=== PATIENT | female | born 1995 | race Caucasian/White ===

== ENCOUNTER 2024-05-28 14:34 | Emergency (ER) | payer SELFPAY ==
[2024-05-28 14:42] VITALS: BP 134/80; PULSE 100; RESP 16; TEMP 36.6; O2SAT 98; BMI 36.6
--- NOTE | 2024-05-28 14:46 | DI.US.S_ITS ---
PROCEDURE: US OB <= 14 WEEKS FETUS INDICATIONS: SPOTTING OUTSIDE/PRIOR DATING DATA: Last menstrual period (LMP): 03/17/2024. LMP-based estimated date of delivery (SAMSON): 12/22/2024. First dating scan (date and location): 05/28/2024. Estimated date of delivery (SAMSON) from first dating scan: 12/19/2024. TECHNIQUE: Real-time scanning was performed of the fetus and maternal pelvic organs, with image documentation. COMPARISON: None. FINDINGS: Single intrauterine present. Embryo: Present, measuring 3.8 centimeters, corresponding to 10 weeks 5 days Heart rate: 157 beats per minute Subchorionic hemorrhage present, measuring 2.1 x 1.7 x 7.6 centimeter. Maternal organs: Ovaries are unremarkable. IMPRESSION: Single living intrauterine at 10 weeks 5 days, SAMSON 12/19/2024 based on today's exam. Large subchorionic hemorrhage. We strive to produce accurate, complete, and clear reports of imaging services. To assist us in improving patient care, this report was composed using standard report templates and voice recognition software. Therefore, it may contain abnormal punctuation, insertions and/or omissions. Occasional wrong-word or sound-alike substitutions may occur. Though we review the report and make efforts to correct it, we do recommend that the report be read carefully in proper context to recognize any text inaccuracies. Dictated by: Rafael Maguire M.D. on 05/28/2024 at 15:36 Approved by: Rafael Maguire M.D. on 05/28/2024 at 15:37
[2024-05-28 15:40] LABS: Add Manual Diff / Slide Review NO; Basophils Absolute Auto 0 /uL (0-100); Basophils Percent Auto 0.2 % (0-2); Eosinophils Absolute Auto 0 /uL (0-450); Eosinophils Percent Auto 0.6 % (2-4); Hematocrit 36.2 % (36-46); Hemoglobin 12.3 g/dL (12.0-16.0); Lymphocytes Absolute Auto 900 /uL (1100-4500); Lymphocytes Percent Auto 12.5 % (25-40); Mean Corpuscular HGB Conc 33.8 % (30-36); Mean Corpuscular Hemoglobin 28.6 PG (26-34); Mean Corpuscular Volume 84.7 fL (80-100); Monocytes Absolute Auto 400 /uL (0-900); Monocytes Percent Auto 5.6 % (3-14); Neutrophils Absolute Auto 5800 /uL (1500-7000); Neutrophils Percent Auto 81.1 % (50-75); Platelet Count 215 X10^3/uL (150-400); Red Blood Cell Count 4.28 X10^6/uL (4.0-5.2); Red Cell Distribution Width 14.5 % (11.6-14.8); White Blood Cell Count 7.2 X10^3/uL (4.5-11.0)
[2024-05-28 15:44] LABS: Alanine Aminotransferase 16 IU/L (<35); Albumin 3.7 g/dL (3.5-5.0); Albumin Globulin Ratio 1.5 (1.0-2.8); Alkaline Phosphatase 60 U/L (38-126); Aspartate Aminotransferase 22 IU/L (14-36); BUN Creatinine Ratio 11.3 (6-22); Bilirubin Total 0.4 mg/dL (0.2-1.3); Blood Urea Nitrogen 6 mg/dL (7-17); Calcium 8.8 mg/dL (8.4-10.2); Carbon Dioxide 21 mmol/L (22-32); Chloride 107 mmol/L (98-107); Estimated Glomerular Filt Rate > 60 mL/min (>60); Globulin 2.4 g/dL (1.7-4.1); Glucose 114 mg/dL (70-100); HEMOLYSIS < 15 (0-50); Potassium 3.7 mmol/L (3.4-5.1); Sodium 135 mmol/L (137-145); Total Protein 6.1 g/dL (6.3-8.2)
--- NOTE | 2024-05-28 16:01 | ED_ITS ---
HPI - General Chief complaint: Vaginal Bleeding Stated complaint: 10 weeks preg, little spotting Time Seen by Provider: 05/28/24 16:01 Source: patient, RN notes reviewed and old records reviewed Mode of arrival: Ambulatory Limitations: no limitations History of Present Illness HPI Narrative: 28-year-old female who presents with complaint of spotting when she wipes after urinating. Patient has had a little bit of lower pelvic cramping. States she is approximately 10 weeks by dates. Has not established care. Does note she would RhoGAM with her prior . Patient states no trauma, she has not had any fevers. She describes her cramping is mild. No back or flank pain. No nausea or vomiting. No chest pain or shortness of breath. No lightheadedness or passing out. Has not had any je hematuria or je vaginal bleeding. She denies any dysuria urgency or frequency. No issues with bowel movements. Patient states no daily medications. No known drug allergies. She has not currently established with care. No tobacco, no regular alcohol, no recreational drugs. She is accompanied by her family. She does not have a primary care physician. Related Data Allergies Allergy/AdvReac Type Severity Reaction Status Date / Time No Known Drug Allergies Allergy Verified 05/28/24 14:42 Review of Systems Review of Systems ROS Unobtainable: All systems reviewed & are unremarkable except as noted in HPI and below Exam Narrative Exam Narrative: GENERAL: Alert and oriented x three, mild distress. HEENT: Head normocephalic, atraumatic, EOMI, pupils reactive, face symmetric, moist mucous membranes NECK: Supple, full range of motion CARDIOVASCULAR: Regular rate and rhythm without murmurs, rubs or gallops. RESPIRATORY: Breath sounds equal bilaterally, no wheezes rales or rhonchi. ABDOMEN: Soft, nontender. Normoactive bowel sounds all 4 quadrants. No guarding or rebound, rigidity, no mass : No CVA tenderness EXTREMITIES: Normal range of motion, no clubbing or edema. Neurovascularly intact NEUROLOGICAL: Cranial nerves II through XII grossly intact. Moving all extremities SKIN: Warm, dry, no petechiae, no rashes or lesions. Initial Vital Signs Initial Vital Signs: Vital Signs Temperature 97.9 F 05/28/24 14:42 Pulse Rate 100 H 05/28/24 14:42 Respiratory Rate 16 05/28/24 14:42 Blood Pressure 134/80 05/28/24 14:42 Pulse Oximetry 98 05/28/24 14:42 Oxygen Delivery Method Room Air 05/28/24 14:42 Course Orders Ordered: ED Orders 05/28/24 14:46 US OB <= 14 weeks fetus Stat 05/28/24 15:12 Complete Blood Count AUTO DIFF Stat Comprehensive Metabolic Panel Stat HCG Quantitative /Beta subunit Stat Type and Screen Stat Discontinued Medications Rho Immune Globulin (Rho(D) Immune Globulin 1,500 Unit Syringe) 1,500 unit IM NOW ONE Stop: 05/28/24 16:17 Last Admin: 05/28/24 16:28 Dose: 1,500 unit Documented By: [facility] Vital Signs Vital signs: Vital Signs - 8 hr 05/28/24 14:42 05/28/24 16:40 Temperature 97.9 F Pulse Rate 100 H 86 Respiratory Rate 16 16 Blood Pressure 134/80 124/86 Pulse Oximetry 98 98 Oxygen Delivery Method Room Air Room Air MDM - OB/Uterine Contractions Lab Data 05/28/24 15:12 05/28/24 15:12 Labs: Lab Results 05/28/24 Range/Units 15:12 WBC 7.2 (4.5-11.0) X10^3/uL RBC 4.28 (4.0-5.2) X10^6/uL Hgb 12.3 (12.0-16.0) g/dL Hct 36.2 (36-46) % MCV 84.7 (80-100) fL MCH 28.6 (26-34) PG MCHC 33.8 (30-36) % RDW 14.5 (11.6-14.8) % Plt Count 215 (150-400) X10^3/uL Neut % (Auto) 81.1 H (50-75) % Lymph % (Auto) 12.5 L (25-40) % [place] % (Auto) 5.6 (3-14) % Eos % (Auto) 0.6 L (2-4) % Baso % (Auto) 0.2 (0-2) % Neut # (Auto) 5800 (2531-4447) /uL Lymph # (Auto) 900 L (9560-4083) /uL [place] # (Auto) 400 (0-900) /uL Eos # (Auto) 0 (0-450) /uL Baso # (Auto) 0 (0-100) /uL Sodium 135 L (137-145) mmol/L Potassium 3.7 (3.4-5.1) mmol/L Chloride 107 (98-107) mmol/L Carbon Dioxide 21 L (22-32) mmol/L BUN 6 L (7-17) mg/dL Creatinine 0.53 (0.52-1.04) mg/dL Estimated GFR > 60 (>60) mL/min BUN/Creatinine Ratio 11.3 (6-22) Glucose 114 H (70-100) mg/dL Calcium 8.8 (8.4-10.2) mg/dL Total Bilirubin 0.4 (0.2-1.3) mg/dL AST 22 (14-36) IU/L ALT 16 (<35) IU/L Alkaline Phosphatase 60 (38-126) U/L Total Protein 6.1 L (6.3-8.2) g/dL Albumin 3.7 (3.5-5.0) g/dL Globulin 2.4 (1.7-4.1) g/dL Albumin/Globulin Ratio 1.5 (1.0-2.8) HCG, Quant 81053 mIU/mL Blood Type A Negative Antibody Screen Negative Urine Dip Bedside Urine Glucose Negative Bedside Urine Bilirubin - Negative Bedside Urine Ketone - Negative Urine Specific [place] 1.010 Bedside Urine Occult Blood - Negative Bedside Urine pH 6.0 Bedside Urine Protein - Negative Bedside Urine Urobilinogen - Negative Bedside Urine Nitrite - Negative Bedside Urine Leukocytes - Negative Esterase MDM Narrative Medical decision making narrative: 8-year-old female G Who presents with complaint of spotting, patient is approximately 10 weeks, she has received RhoGAM in the past. White count of 7.2 hemoglobin of 12.3 platelets of 215. Sodium 135 potassium 3.7 chloride of 107 CO2 of 21 BUN 6 creatinine 0.53 glucose of 114 calcium 8.8, LFTs are negative total protein 6.1, hCG is Rh is negative. Ultrasound shows single living intrauterine at 10 weeks 5 days estimated date of delivery 12/19/2024 based on today's exam large subchorionic hemorrhage measuring 2.1 x 1.7 x 7.6 cm. Heart rates 157 beats per minute. Spoke with patient, she has had some mild spotting but does have a large subchorionic hemorrhage so we will give RhoGAM. Patient's it is Rh negative. Spoke with Dr. Keyes who can see the patient next TuesdayJune 05 to establish care. Plan to continue with pelvic rest. Discussed return precautions with patient. Discharge Plan Departure Patient Disposition: Home Clinical Impression: Subchorionic hemorrhage, Vaginal bleeding in Instructions: DI for Vaginal Bleeding During Activity Restrictions/Additional Instructions: I spoke with Dr. Keyes today, she is happy to see on June the to set up care. You can call the office if you are having worsening bleeding over the next week to see if they can see you sooner. You can take Tylenol for any pain up to a 1000 mg every 6 hours. Pelvic rest is recommended. Avoid any heavy lifting, sexual activity, ect. Do not use tampons you can use pads or liners. Please return for new or worsening abdominal back or flank pain, going through more than a pad an hour, lightheadedness, passing out, chest pain or shortness of breath, persistent vomiting or other new or concerning changes. Referrals: Joelle Keyes MD [Physician] - Stand Alone Forms: Patient Portal/API
[2024-05-28 16:26] LABS: HCG Quantitative /Beta subunit 74606 mIU/mL
[2024-05-28] MEDS: RHO(D) IMMUNE GLOBULIN 1,500 UNIT SYRINGE 1500 UNIT IM (16:28)
[2024-05-28 16:40] VITALS: BP 124/86; PULSE 86; RESP 16; O2SAT 98
== END 2024-05-28 16:40 | disposition home or self-care (01) ==
PROVIDERS: Emergency Provider Emergency Medicine
DX: O46.8X1 Other antepartum hemorrhage, first trimester (principal); Z3A.10 10 weeks gestation of pregnancy
CPT/HCPCS: 36415; 76801; 80053; 81003; 84702; 85025; 86850; 86900; 86901; 96372; 99283; 99284; J2790

== ENCOUNTER → 2024-07-03 14:55 | Outpatient (CLI) | payer OTHER, MEDICAID, SELFPAY ==
[2024-07-03 20:48] LABS: Urine N gonorrhoeae NOT DETECTED
[2024-07-03 20:50] LABS: Urine Chlamydia NOT DETECTED
== END ==
PROVIDERS: Visit Provider Student in an Organized Health Care Education/Training Program
DX: Z34.02 Encounter for supervision of normal first pregnancy, second trimester (principal); Z3A.15 15 weeks gestation of pregnancy
CPT/HCPCS: 87491; 87591

== ENCOUNTER → 2024-07-03 15:27 | Outpatient (CLI) | payer OTHER, MEDICAID, SELFPAY ==
[2024-07-03 16:40] LABS: Add Manual Diff / Slide Review NO; Basophils Absolute Auto 0 /uL (0-100); Basophils Percent Auto 0.1 % (0-2); Eosinophils Absolute Auto 0 /uL (0-450); Eosinophils Percent Auto 0.4 % (2-4); Hematocrit 36.5 % (36-46); Hemoglobin 12.3 g/dL (12.0-16.0); Lymphocytes Absolute Auto 900 /uL (1100-4500); Lymphocytes Percent Auto 11.9 % (25-40); Mean Corpuscular HGB Conc 33.6 % (30-36); Mean Corpuscular Hemoglobin 28.7 PG (26-34); Mean Corpuscular Volume 85.4 fL (80-100); Monocytes Absolute Auto 500 /uL (0-900); Monocytes Percent Auto 6.1 % (3-14); Neutrophils Absolute Auto 6200 /uL (1500-7000); Neutrophils Percent Auto 81.5 % (50-75); Platelet Count 216 X10^3/uL (150-400); Red Blood Cell Count 4.27 X10^6/uL (4.0-5.2); Red Cell Distribution Width 14.9 % (11.6-14.8); White Blood Cell Count 7.7 X10^3/uL (4.5-11.0)
[2024-07-03 16:49] LABS: Hemoglobin A1C% w Est Avg Glu 4.9 % (4.0-6.0)
[2024-07-04 07:37] LABS: RPR Screen Non Reactive (Non Reactive)
[2024-07-04 08:11] LABS: Varicella IgG Antibody Non Reactive (Non Reactive)
== END ==
PROVIDERS: Referring Provider Student in an Organized Health Care Education/Training Program; Visit Provider Student in an Organized Health Care Education/Training Program
DX: O99.210 Obesity complicating pregnancy, unspecified trimester
CPT/HCPCS: 36415; 80055; 83036; 86787; 86803; 86850; 86870; 86900; 86901; 87389; 87491; 87591

== ENCOUNTER → 2024-08-03 14:51 | Outpatient (CLI) | payer BC, OTHER, SELFPAY ==
--- NOTE | 2024-08-03 14:52 | DI.US.S_ITS ---
PROCEDURE: US OB >= 14 WEEKS FETUS INDICATIONS: anatomy scan OUTSIDE/PRIOR DATING DATA: Last menstrual period (LMP): 03/17/24 LMP-based estimated date of delivery (SAMSON): 12/22/24. First dating scan (date and location): 05/28/24. Estimated date of delivery (SAMSON) from first dating scan: 12/19/24. The calculations are made using the above SAMSON of 12/19/24. TECHNIQUE: Real-time scanning was performed of the fetus, with image documentation and biometric measurements. Endovaginal scanning: Not needed COMPARISON: None. FINDINGS: General: A single living intrauterine gestation is present. Presentation: Breech. Placenta: Placental position is anterior , without previa. Amniotic fluid index: 13.5 cm, normal range is 5-24 cm. Single deepest vertical pocket is 4.4 cm. heart rate: 140 beats per minute. Maternal cervical canal: 4.9 cm long. Normal lower limit is 2.5 cm. biometrics: Biparietal diameter: 4.7 cm, 20 weeks 0 days Head circumference: 18.1 cm, 20 weeks 3 days Abdominal circumference: 15.4 cm, 20 weeks 4 days Femur length: 3.3 cm, 20 weeks 3 days Clinically estimated gestational age: 19 weeks 6 days Composite gestational age from present scan: 20 weeks 3 days Estimated weight and percentile: 357 g, 80 of percentile Anatomic survey: Neuro: Ventricles are non-dilated at less than 10 mm. Cisterna magna is normal at 3-11 mm. Cerebellum is normal in size and morphology. Nuchal skin fold: Normal at less than 6 mm between 14-21 weeks gestational age. Face: Nose and lips, facial profile are normal. Spine: No evidence for spina bifida. Heart: 4-chambered heart is present, with normal ventricular outflow tracts. The right ventricular outflow tract was somewhat poorly seen due to positioning. Diaphragm: Diaphragm is intact. Stomach: Left-sided stomach is present. Kidneys: No hydronephrosis. Normal is less than 5 mm in 2nd trimester, less than 7 mm in 3rd trimester. Cord: 3-vessel cord has orthotopic insertion. Bladder: Normal in size. Extremities: All 4 extremities identified. IMPRESSION: Appropriate interval growth, no anomaly seen. The delivery date is projected to be centered on 12/19/24 +/-5 days We strive to produce accurate, complete, and clear reports of imaging services. To assist us in improving patient care, this report was composed using standard report templates and voice recognition software. Therefore, it may contain abnormal punctuation, insertions and/or omissions. Occasional wrong-word or sound-alike substitutions may occur. Though we review the report and make efforts to correct it, we do recommend that the report be read carefully in proper context to recognize any text inaccuracies. Dictated by: Evangelist Blanco M.D. on 08/03/2024 at 16:44 Approved by: Evangelist Blanco M.D. on 08/03/2024 at 16:47
== END ==
PROVIDERS: Referring Provider Student in an Organized Health Care Education/Training Program; Visit Provider Student in an Organized Health Care Education/Training Program
DX: Z34.02 Encounter for supervision of normal first pregnancy, second trimester (principal); Z3A.20 20 weeks gestation of pregnancy
CPT/HCPCS: 76811

== ENCOUNTER → 2024-09-21 08:50 | Outpatient (CLI) | payer OTHER, SELFPAY ==
[2024-09-21 09:25] LABS: Hematocrit 36.8 % (36-46); Hemoglobin 12.4 g/dL (12.0-16.0)
[2024-09-21 11:27] LABS: GTT (PREG) 1 Hour PP 50gm Dose 93 mg/dL (76-139)
== END ==
PROVIDERS: Referring Provider Student in an Organized Health Care Education/Training Program; Visit Provider Student in an Organized Health Care Education/Training Program
DX: O99.210 Obesity complicating pregnancy, unspecified trimester (principal); Z13.0 Encounter for screening for diseases of the blood and blood-forming organs and certain disorders involving the immune mechanism; Z67.91 Unspecified blood type, Rh negative
CPT/HCPCS: 36415; 82950; 85014; 85018; 86850

== ENCOUNTER → 2024-11-15 15:50 | Outpatient (CLI) | payer OTHER, SELFPAY ==
--- NOTE | 2024-11-15 15:51 | DI.US.S_ITS ---
PROCEDURE: US OB LIMITED INDICATIONS: OBESITY - GROWTH OUTSIDE/PRIOR DATING DATA: Last menstrual period (LMP): 03/17/2024. LMP-based estimated date of delivery (SAMSON): 12/22/2024. First dating scan (date and location): 05/28/2024. Estimated date of delivery (SAMSON) from first dating scan: 12/19/2024. The calculations are made using the clinical SAMSON of 12/22/2024. TECHNIQUE: Real-time scanning was performed of the fetus, with image documentation and biometry. Endovaginal scanning: Not performed COMPARISON: [facility], OB >= 14 WEEKS FETUS, 08/03/2024, 15:00. FINDINGS: A single living intrauterine gestation is present. Presentation: Vertex. Placenta: Placental position is anterior, without previa. Amniotic fluid index: 25.3 cm, normal range is 5-24 cm. Single deepest vertical pocket is 10.3 cm. heart rate: 143 beats per minute. Maternal cervical canal: 6.6 cm long. Normal lower limit is 2.5 cm. Biometric measurements: BPD: 9.2 cm, 37 weeks 1 day. 97th percentile HC: 34.0 cm, 39 weeks 1 day. 98th percentile AC: 32.4 cm, 36 weeks 2 days. 92nd percentile FL: 6.7 cm, 34 weeks 3 days. 34th percentile Estimated weight 2881 g, 86 percentile. Clinically estimated gestational age: 34 weeks 5 days Estimated gestational age from today's scan: 36 weeks 5 days. IMPRESSION: 1. [place] living intrauterine at 36 weeks 5 days based on today's ultrasound. Vertex position. Estimated weight is in the 86 percentile. 2. Normal placenta. Polyhydramnios. STEPHANIE 25.3. Dictated by: Luther Shirley M.D. on 11/15/2024 at 21:57 Approved by: Luther Shirley M.D. on 11/15/2024 at 22:04
== END ==
PROVIDERS: Referring Provider Student in an Organized Health Care Education/Training Program; Visit Provider Student in an Organized Health Care Education/Training Program
DX: O99.213 Obesity complicating pregnancy, third trimester (principal); O40.3XX0 Polyhydramnios, third trimester, not applicable or unspecified; Z3A.36 36 weeks gestation of pregnancy
CPT/HCPCS: 76815

== ENCOUNTER → 2024-12-03 14:53 | Outpatient (CLI) | payer OTHER, SELFPAY ==
[2024-12-04 11:21] LABS: Strep Grp B PCR NEG for Grp B Strep
== END ==
PROVIDERS: Visit Provider Student in an Organized Health Care Education/Training Program
DX: Z36.85 Encounter for antenatal screening for Streptococcus B (principal)
CPT/HCPCS: 87653

== ENCOUNTER 2024-12-12 03:45 | Inpatient (IN) | payer OTHER, SELFPAY ==
[2024-12-12 05:57] LABS: Add Manual Diff / Slide Review NO; Basophils Absolute Auto 0 /uL (0-100); Basophils Percent Auto 0.3 % (0-2); Eosinophils Absolute Auto 0 /uL (0-450); Eosinophils Percent Auto 0.4 % (2-4); Lymphocytes Absolute Auto 1200 /uL (1100-4500); Lymphocytes Percent Auto 11.7 % (25-40); Mean Corpuscular HGB Conc 34.3 % (30-36); Mean Corpuscular Hemoglobin 30.9 PG (26-34); Mean Corpuscular Volume 90.1 fL (80-100); Monocytes Absolute Auto 600 /uL (0-900); Monocytes Percent Auto 6.3 % (3-14); Neutrophils Absolute Auto 8000 /uL (1500-7000); Neutrophils Percent Auto 81.3 % (50-75); Platelet Count 191 X10^3/uL (150-400); Red Blood Cell Count 4.21 X10^6/uL (4.0-5.2); Red Cell Distribution Width 14.9 % (11.6-14.8); White Blood Cell Count 9.8 X10^3/uL (4.5-11.0)
--- NOTE | 2024-12-12 06:43 | P.HPOB_ITS ---
OB HPI Date/Time Date of admission: 12/12/24 Date Patient Seen: 12/12/24 Time Patient Seen: 06:43 History of Present Condition Chief complaint: SROM SAMSON Calculator 2 Estimated Delivery Date Method Current WG Current Estimate 12/22/24 LMP (Certain) 38w 4d Other Estimates 12/19/24 Ultrasound #1 39w 0d : 2 Para: 1 Narrative: 29yo at 38+4wks presented with rupture of membranes at home at 0300. She notes some minor cramping, otherwise denies vaginal bleeding or decreased movement. care: good care Dating criteria OB: LMP confirmed by 1st trimester US Ultrasounds: normal mid trimester US Narrative: Ultrasound Ultrasound Details:: Dating US in DI 05/28/24: shin IUP with CRL measuring 10+5wks, + FCA, subchorionic hemorrhage Anatomy US 08/03/24: normal anatomy, anterior placenta, EFW 80%ile Growth US 11/15/24: EFW 86%ile, mild poly (STEPHANIE 25.3), vtx presentation Expected Delivery Route/Plan Specific Issues/Plans Mild polyhydramnios at 34wks (STEPHANIE 25.3)--> repeat fluid at 36wks (SDP 6.8); SDP 8.8cm at 38wks Obesity (pre- BMI 36)--> [?x ] Hgb A1C- 4.9; ?[x ] growth sono 32-34wks- EFW 86%ile Rh negative--> received rhogam 1st trimester for VB; [ x] rhogam 28wks Declined aneuploidy/carrier screening ObiBonnie tillman (will be getting in July) Assigned to Chay Preadmission Labs Last OB Lab Results: 2 Blood Type A Negative 12/12/24 05:40 Antibody Screen Positive 12/12/24 05:40 Hct 38.0 % (36-46) 12/12/24 05:40 Hgb 13.0 g/dL (12.0-16.0) 12/12/24 05:40 Hep Bs Antigen Negative s/c (NEGATIVE) 07/03/24 15:53 Hepatitis C Antibody Negative s/c (NEGATIVE) 07/03/24 15:53 Rubella Antibody 34.0 IU/mL (>15) 07/03/24 15:53 VZV IgG Antibody Non reactive (Non Reactive) 07/03/24 15:53 Glucose 1 Hr 50 gm 93 mg/dL (76-139) 09/21/24 10:45 Hemoglobin A1c 4.9 % (4.0-6.0) 07/03/24 15:53 Group B Strep (PCR) Neg for grp b strep 12/03/24 14:53 Glucose Tolerance Testin hr (negative) -: Chlamydia screen: negative, Gonorrhea screen: negative and Urine: negative -: PAP smear: Normal External Labs -: Urine: negative Prior (ies) Past Pregnancies Del. Date GA/Weeks Labor Lgth Wt Sex Route Outcome Anesthesia Place Delv Breastfeed Preg Comp Name 10/28/22 40 20 8 lb 12 oz Male vaginal live - full te rm epidural [place] tried x1 wk other Bal Delivery Date: 10/28/22 Last Updated by: Adriana Hollingsworth, RN Water broken for 20 hours, no chorio Evaluation Evaluation Baseline heart rate: 130 Variability: Moderate (11-25) monitor accelerations: Present Monitor Decelerations: Absent Contraction Frequency (minutes): 3 Uterine Contraction Intensity: Mild Status: Category l Dilation (cm): 1 Effacement (%): 10 station: -3 Position of cervix: posterior Consistency: medium Non-invasive Membranes Rupture Test: positive [facility] Medical History (Updated 12/11/24 @ 17:09 by Bridgette Cartwright DO) Acne (~2020) Carpal tunnel syndrome (~2013) Subchorionic hemorrhage in first trimester Obesity affecting Ingrown toenail Surgical History (Updated 08/15/24 @ 18:27 by Nakita Mccoy) Anesthesia [place] teeth extracted Family History (Updated 08/15/24 @ 18:27 by Nakita Mccoy) Grandmother Breast cancer Skin cancer Social History marital status: unmarried,living together (enagaged) details: Obi number of children: 1 household members: significant other, family (parents and little brother) and children lives independently: Yes caregiver/support person: Yes housing: house pets and animals: No education level: college ([employer]- social and behavioral studies) occupational status: unemployed current occupational exposures/hazards: No special kristian needs: No travel history: other (denies) seatbelt use: always water heater temp set < 120 deg: Yes working smoke detector in home: Yes fire extinguisher in home: Yes carbon monox detector in home: Yes firearms in home: No do you feel safe at home: Yes Smoking Status: Never smoker second hand exposure: No alcohol intake: former (Occassional drinker pre-) substance use type: does not use during the past year weight has: remained stable well-balanced diet: about half the time daily servings fruits/ve-1 caffeine: Yes (1 cup a day ) eating out: rarely or never Type(s) of exercise: none Meds Home Medications and Allergies Home Medications Medication Instructions Recorded Confirmed Type vits no.126-ferrous fum tab PO 06/18/24 11/05/24 History 28 mg iron-folic acid 800 mcg tablet (Classic ) Allergies Allergy/AdvReac Type Severity Reaction Status Date / Time No Known Drug Allergies Allergy Verified 11/05/24 09:01 Review of Systems Review of Systems ROS: Yes All systems reviewed with the patient and are negative except as otherwise documented OB Exam Vital signs Blood Pressure: 115/78 Pulse Rate: 90 HENMT Head: normal to inspection and normocephalic Eyes General: appearance normal, both eyes and all related structures Resp Effort & Inspection: normal respiratory effort and able to speak in complete sentences Extremities Lower extremity: Yes normal to inspection GI Inspection: normal to inspection Other: gravid, nontender, nondistended Presentation: vertex (confirmed on US) Amniotic Fluid: clear Objective Labs 12/12/24 05:40 Labs: Laboratory Results - last 24 hr 12/12/24 05:40 WBC 9.8 RBC 4.21 Hgb 13.0 Hct 38.0 MCV 90.1 MCH 30.9 MCHC 34.3 RDW 14.9 H Plt Count 191 Neut % (Auto) 81.3 H Lymph % (Auto) 11.7 L [place] % (Auto) 6.3 Eos % (Auto) 0.4 L Baso % (Auto) 0.3 Neut # (Auto) 8000 H Lymph # (Auto) 1200 [place] # (Auto) 600 Eos # (Auto) 0 Baso # (Auto) 0 Blood Type A Negative Antibody Screen Positive Assessment and Plan Assessment and Plan Assessment and Plan narrative: 29yo at 38+4wks admitted with prelabor rupture of membranes. -CBC, T&S on admission -continuous EFM -epidural PRN -GBS neg, ppx not indicated -PPH risk low -VTE risk low, SCDs with epidural -anticipate L&D Counseling: Common procedures and interventions related to the management of were explained to the patient, including assistance at vaginal delivery with episiotomy, vacuum, or forceps, use of medications to stop premature labor or induce labor, and assessment including auscultation (listening to the heart), use of electronic monitoring (external and / or internal), and use of scalp electrode and/or intrauterine pressure catheter.? It was also explained that approximately 20-30% of mothers have a need for delivery during their labor course. It was explained to the patient that , labor and delivery are ordinarily normal physiological events and can be expected to provide a healthy outcome for mother and baby in the majority of cases. However, there are complications that may arise during , labor, and delivery, such as: hemorrhage requiring administration of blood and/or blood products, surgical intervention, possibly even hysterectomy for life-saving purposes; possibility of infection requiring antibiotics, prolonged hospital stay, and rarely surgical intervention; possibility of blood clots;? possibility of retained products of conception requiring surgical intervention;? possibility of serious tears or injury to the vagina, cervix, perineum, or rectum;? possibility of injury to abdominal structures if delivery is required;? and rarely maternal or may occur. Time-Based Coding :: [45min] spent with patient and on the chart (including review of chart, obtaining history, exam, reviewing outside data, placing orders, documenting exam and treatment plan, and counseling patient) on [12/12/24].
[2024-12-12 06:51] VITALS: BP 115/78; PULSE 90
[2024-12-12 07:19] VITALS: BP 115/58
[2024-12-12] MEDS: LACTATED RINGERS 1,000 ML 100 ML IV ×2 (08:33→10:03)
--- NOTE | 2024-12-12 09:16 | P.PCN_ITS ---
[facility] <Joseline Louis CRNA - Last Filed: 12/12/24 10:30> Pre-procedure Procedure: Continuous Lumbar Epidural for L&D Attending OB provider: Bridgette Cartwright PMH/ROS narrative: here with SROM requesting MAGEN prior to pitocin gtt. Rating contraction pain as 1/10. PSH/Anesthesia history narrative: [place] teeth and previous MAGEN without complications. Exam narrative: See pre-anesthesia review form. ASA Class: II Labs: Hct 38.0 % (36-46) 12/12/24 05:40 Plt Count 191 X10^3/uL (150-400) 12/12/24 05:40 Medications: Current Medications Generic Name Dose Route Start Last Admin Trade Name Freq PRN Reason Stop Dose Admin Calcium Carbonate 1,000 mg 12/12/24 05:15 Calcium Carbonate 500 Mg Tab PO Q2HR PRN Dyspepsia Carboprost Tromethamine 250 mcg 12/12/24 04:55 Carboprost 250 Mcg/Ml Ampul IM Q90M PRN Bleeding Diphenhydramine HCl 25 mg 12/12/24 08:28 Diphenhydramine 50 Mg/Ml Vial IV Q10M PRN Pruritis Diphenhydramine HCl 25 mg 12/12/24 08:28 Diphenhydramine 50 Mg/Ml Vial IV 12/13/24 08:28 Q3HR PRN PRURITUS Lactated Ringer's 1,000 mls @ 100 mls/hr 12/12/24 05:00 12/12/24 08:33 Lactated Ringers IV 12/12/24 14:59 100 mls/hr CONT KAELYN Administration Oxytocin/Lactated Ringer's 30 unit in 500 mls @ 200 mls/hr 12/12/24 04:55 Oxytocin Premix IV CONT PRN Bleeding Protocol Tranexamic Acid 1,000 mg/ 100 mls @ 600 mls/hr 12/12/24 04:55 Sodium Chloride IV NOW PRN Bleeding Lidocaine HCl 20 ml 12/12/24 04:55 Lidocaine 1% 20 Ml INJ INTRA-OP PRN Post Delivery Methylergonovine Maleate 0.2 mg 12/12/24 04:55 Methylergonovine 0.2 Mg Tablet PO Q6HR PRN Heavy Bleeding Methylergonovine Maleate 0.2 mg 12/12/24 04:55 Methylergonovine 0.2 Mg/Ml Vial IM NOW PRN Bleeding Mineral Oil 30 ml 12/12/24 04:55 Mineral Oil 30 Ml Udc TOP PRN PRN Version Misoprostol 800 mcg 12/12/24 04:55 Misoprostol 200 Mcg Tablet UT NOW PRN Bleeding Misoprostol 400 mcg 12/12/24 04:55 Misoprostol 200 Mcg Tablet SL NOW PRN Bleeding Nalbuphine HCl 2.5 mg 12/12/24 08:28 Nalbuphine 20 Mg/Ml Ampul IV Q10M PRN Pruritis Nalbuphine HCl 5 mg 12/12/24 08:28 Nalbuphine 20 Mg/Ml Ampul IV Q6H PRN PRURITIS Naloxone HCl 0.2 mg 12/12/24 04:55 Naloxone 0.4 Mg/Ml Vial IV Q2MIN PRN Opiate Reversal Naloxone HCl 0.4 mg 12/12/24 08:28 Naloxone 0.4 Mg/Ml Vial IV Q2MIN PRN Opiate Reversal Ondansetron HCl 4 mg 12/12/24 05:15 Ondansetron 4 Mg/2 Ml Inj IV Q4HR PRN Nausea And Vomiting Ondansetron HCl 4 mg 12/12/24 08:28 Ondansetron 4 Mg/2 Ml Inj IV 12/13/24 08:28 Q6HR PRN Nausea Oxytocin 10 unit 12/12/24 04:55 Oxytocin 10 Unit/Ml Vial IM NOW PRN Bleeding Allergies: Allergies Allergy/AdvReac Type Severity Reaction Status Date / Time No Known Drug Allergies Allergy Verified 12/12/24 07:23 Procedure Insertion date: 12/12/24 Insertion time: 08:50 Prep/Local: 1% lidocaine (5mL to interspace. CHG for skin prep.) Interspace: L3/4 Patient position: sitting Needle: 18 gauge Joytead Loss of resistance with: saline ALMA at (cm): 6 Catheter placed at SKIN (cm): 12 Catheter in SPACE (cm): 6 Insertion: No CSF, No Blood, No Paresthesia with insertion, No Paresthesia with injection and No Test dose reaction Initial Medications TEST DOSE time: 08:55 TEST DOSE: 1.5% lidocaine with epinephrine 1:200k (mL): 3 Infusion INFUSION: 0.125% bupivacaine and with fentanyl 2 mcg/mL Initial rate (mL/hr): 6 Subsequent interventions: 1010: At bedside for call regarding hypotension. Epidural pump was stopped by nursing [id number] IV ephedrine given per protocol. BP now 100s/60s. Additional 10mg IV Ephedrine bolus given and pump restarted at rate of 4mL/hr. Patient experiencing no pain and no lower extremity weakness. - CHELSEY SANCHEZ Post-procedure Anesthesia date START: 12/12/24 Anesthesia time START: 08:45 <Ashleigh Montiel CRNA - Last Filed: 12/13/24 08:07> Infusion Subsequent interventions: 1010: At bedside for call regarding hypotension. Epidural pump was stopped by nursing [id number] IV ephedrine given per protocol. BP now 100s/60s. Additional 10mg IV Ephedrine bolus given and pump restarted at rate of 4mL/hr. Patient experiencing no pain and no lower extremity weakness. - CHELSEY SANCHEZ. 16:15: called to patient room for increased pain/bolus request, clinician bolus administered. Converted to C/S at 16:40, see anesthesia and surgeon documentation for details and subsequent interventions. Post-procedure Anesthesia date END: 12/12/24 Post-procedure Anesthesia Assessment: Yes CV function: HR/BP stable, Yes Resp function: RR/sat/airway adequate, Yes Post-op hydration adequate, Yes Pain control adequate, Yes Nausea & vomiting absent, Yes Temperature > 36 C, Yes Mental status appropriate and No Anesthesia complications
--- NOTE | 2024-12-12 11:32 | PM.OBPNLAB ---
Date/Time Date Patient Seen: 12/12/24 Time Patient Seen: 11:32 Pain Control Pain control: tolerating well and epidural Pelvic Exam Dilation (cm): 1 Effacement (%): 10 station: -3 Amniotic membrane status: Leaking Comments: HIGH station, unable to palpate head bedside transabdominal US performed, confirmed cephalic presentation (no engagement) Contractions Contractions on admission: irregular Monitor mode: External Pitocin rate (mU/min): 4 Contraction intensity: Mild Status status: Category l Heart Rate Baseline: 140 Monitor Accelerations: Present Monitor Decelerations: Absent Monitor Variability: Moderate Assessment and Plan Assessment: induction ongoing Plan: continuous present management Comments: 29yo , augmentation of labor in progress, +SROM confirmed on admission with known polyhydramnios Cephalic presentation confirmed per US, suspected high leak with noted palpable forebag on exam, additional AROM not performed as head not adequately engaged Abdominal binder applied, patient and bedside RN aware of unstable lie with planned interval SVE in [facility] of change in tracing or additional SROM of large volume fluid due to risk of prolapse Continue pitocin augmentation anticipate
[2024-12-12] MEDS: OXYTOCIN PREMIX 30 UNIT/500 ML PLAST..BAG IV (11:55)
[2024-12-12] MEDS: TERBUTALINE 1 MG/ML VIAL 0.25 MG SUBCUT (16:37)
[2024-12-12] MEDS: TRANEXAMIC ACID 1,000 MG in SODIUM CHLORIDE 0.9% 100 ML 600 MG IV (17:05)
--- NOTE | 2024-12-12 17:09 | SUR.OPER ---
Supine on Padded OR bed, head on pillow, safety belt at thigh, arms secured on padded arm boards at <90 degrees abduction. Bump under right buttock. Legs uncrossed with pillow under knees, gel pad to heels, tape over blanket to lower legs.
[2024-12-12] MEDS: OXYTOCIN 10 UNIT/ML VIAL IM (17:12)
[2024-12-12] MEDS: CEFAZOLIN VIAL 2 GM in SODIUM CHLORIDE 0.9% 100 ML IV (17:14)
[2024-12-12 17:16] LABS: Base Excess Cord Arterial Bld -5.9 (-9.0-1.8); CO2 Cord Arterial Blood 62.3 (40-71); HCO3 Cord Arterial Blood 23.5 (17-27); Oxygen Sat Cord Arterial Blood 10.6 (5-59); pH Cord Arterial Blood 7.18 (7.14-7.38)
[2024-12-12] MEDS: AZITHROMYCIN 500 MG in DEXTROSE 5% IN WATER 250 ML 250 MG IV (17:16)
[2024-12-12 17:20] LABS: Base Excess Cord Venous Blood -5.8 (-7.7-1.9); Cord Venous Blood PCO2 43.1 (27-56); Cord Venous Blood pH 7.289 (7.25-7.45); HCO3 Cord Venous Blood 20.7; O2 Saturation Cord Venous Bld 43.2 (14-75)
[2024-12-12 18:17] VITALS: BP 115/67; PULSE 114; RESP 12; TEMP 36.4; O2SAT 99
[2024-12-12] MEDS: BENZOCAINE/MENTHOL 1 LOZ PKT 1 EACH PO (18:22)
[2024-12-12] MEDS: fentaNYL 100 MCG/2 ML INJ IV ×3 (18:23→18:35)
[2024-12-12 18:24] VITALS: BP 113/70; PULSE 115; RESP 13; O2SAT 99
--- NOTE | 2024-12-12 18:25 | P.EN_ITS ---
Event Note Date Patient Seen: 12/12/24 Time Patient Seen: 16:26 Event Note (Rapid Response, Code, or fall): Called from clinic per RN with request for bedside evaluation, large gush of pink tinged fluid. On arrival to room pt in L lateral position, notified that since call pt had continued to have leakage of large volume blood-tinged fluid vs je bleeding. Per RN SVE was performed and she was not able to ascertain what she was feeling. Pitocin off at 1620. External FHR monitoring in progress, intermittent tracing secondary to patient repositioning however audible decels to 60bpm with intervening periods of 110s-120s. SVE performed with palpable upper extremity, unable to reduce, no palpable adjacent or prolapsing cord. Verbal orders given to proceed to OR immediately for stat primary CS secondary to malpresentation, concern for placental abruption with NRFS r emote from delivery. OR team activated 1526 - decision 1636 - SQ terbutaline administered 1640 - in OR continuous external monitoring in OR to allow for neuraxial analgesia to reach surgical density; noted recurrent decelerations auscultated at 1650 and decision to proceed made. Pt prepped and draped, failed sensation test with decision per anesthesia/OB to proceed under general anesthesia due to concern for status 1654 - intubation 1654 - incision 1654 - hysterotomy 1656 - delivery See operative dictation Intraoperative blood loss approximately 2312-3077, mild BP support necessitated throughout case per anesthesia but not in PACU. Immediate postoperative h/h 10.2/30.7
[2024-12-12 18:33] VITALS: BP 115/67; PULSE 110; RESP 15; O2SAT 100
[2024-12-12 18:41] LABS: Hematocrit 30.7 % (36-46); Hemoglobin 10.2 g/dL (12.0-16.0); Mean Corpuscular Hemoglobin 30.5 PG (26-34); Mean Corpuscular Volume 92.4 fL (80-100); Platelet Count 165 X10^3/uL (150-400); Red Blood Cell Count 3.33 X10^6/uL (4.0-5.2); Red Cell Distribution Width 14.8 % (11.6-14.8); White Blood Cell Count 12.3 X10^3/uL (4.5-11.0)
--- NOTE | 2024-12-12 18:45 | P.OP_ITS ---
Operative Date/Time/Diagnoses Date of procedure: 12/12/24 Time of procedure: 16:40 Pre-op diagnosis: 1) IUP at 38w4d 2) SROM, known polyhydramnios 3) malpresentation 4) non-reassuring surveillance remote from delivery 5) suspected placental abruption Post-op diagnosis: same Procedure & Clinicians Procedure: primary low transverse section Same procedure as scheduled: Yes Indications: 1) IUP at 38w4d 2) SROM, poly 3) malpresentation 4) NRFS remote from delivery 5) concern for placental abruption Surgeon: Lynn Rosas Chief Information Officer: Abdulkadir Vazquez Reason for Chief Information Officer: emergent nature of procedure, anticipated complex extraction Anesthesia Type: General and Epidural Operative Notes Findings: Liveborn male infant in transverse presentation grossly normal appearing uterus, bilateral fallopian tubes and ovaries Closure Type: primary Specimen(s): cord blood and cord pH Intraoperative meds administered: Pitocin and Tranexamic acid Estimated Blood Loss (mL): 1,200 Blood products transfused: none Complications: none (stage 3 hemorrhage secondary to prolonged extraction, complicated hysterotomy extensions, placental abruption) Baby 1: Delivery Date: 12/12/24 Delivery Time: 16:56 Gender: Male Presentation: other (transverse, RUE in vagina) Placental Delivery Description: Spontaneous Cord Vessel Description: 3 Vessels Narrative: Pt was taken to the operating room emergently and transferred to OR table.? The epidural was dosed to a surgical level en route to OR. The patient was placed in the supine position, prepped and draped in a sterile fashion.? Prior to incision the level of anesthesia was rechecked and found to be inadequate and decison was made to proceed under general anesthesia.? A timeout was performed. With confirmation of ETT placement per anesthesia procedure was commenced in stat fashion. A pfannensteil incision was made 2cm superior to the pubic symphysis.? This incision was carried down sharply to the level of the rectus fascia.? The fascia was incised sharply with knife and the incision was extended bilaterally and superiorly bluntly. The rectus muscles were then in the midline and the peritoneum was identified.? The peritoneum was entered bluntly under direct visualization.? The peritoneal opening was then extended manually.? The electric fork operator?s hand was inserted in the abdomen and the uterus was found to be in a levo-rotated position. The bladder blade was then inserted. A low transverse incision was made in the uterus using the knife.? The incision was extended laterally and superiorly bilaterally bluntly.? The electric fork operator?s hand was then inserted into the uterus to find an infant in transverse back-down position with spontaneous delivery of RUE via the hysterotomy. The RUE was reduced and hips were attempted to be grasped with spontaneous delivery of RLE/RUE via the hysterotomy; limbs were again reduced and after repeated attempts at maniuplation the hips were able to be grasped and delivered through the hysterotomy with spontaneous delivery of body to level of the cervical spine. head delivered with modified [id number] maneuver.? Noted absence of tone on delivery, spontaneous respirations with palpable pulse >100bpm per palpation of cord. The cord was expeditiously doubly clamped and cut and a segment of cord was preserved for cord gas.? The was then passed to waiting staff for further evaluation and resuscitation.? The placenta delivered spontaneously and passed off the field. ? The uterus was exteriorized and the uterine cavity was wiped of all clots and debris with noted severe extensions of hysterostomy bilaterally exposing bilateral uterine vessels and active bleeding of collateral vasculature.? The bladder blade was reinserted and the hysterotomy incision was repaired with #0 vicryl in a running locked fashion. O'Pequea ligation suture was placed x2 on the R and x1 on the L with subsequently noted hemostasis. The hysterotomy was oversewn with a second #0 vicryl in an imbricating fashion.? The uterus and adnexae were visually inspected with noted spontaneous avulsion of the anterior L broad ligament from the uterine serosa at the level of the hysterotomy. A punctate area of bleeding was identified and oversewn with figure of eight and subsequently noted hemostasis. Serial observation for remainder of case of area without evidence of broad ligament or retroperitoneal hematoma. Remainder of intrabdominal survey including visualization of bilateral fallopian tubes and ovaries without gross abnormality.? The uterus was replaced into the abdomen without difficulty and the hysterotomy was noted to be hemostatic off of tension.? Per clot was placed along the denuded lower uterine segment for further hemostasis prophylaxis. The rectus fascia was closed using #1 vicryl in a running fashion.? The incision was irrigated and hemostasis was achieved using the bovie.? The subcutaneous space was reapproximated using plain gut suture in a running fashion.? The skin was closed using 4-0 monocryl followed by application of steristrips and abdominal compression dressing.? All counts were correct x2.? The pt tolerated the procedure well and without difficulty. Fundal contents were expressed and fundus noted to be firm, level noted prior to patient transfer to PACU in stable condition.? Post-operative Condition: stable Disposition: PACU Aftercare: routine postop
[2024-12-12 22:01] LABS: Add Manual Diff / Slide Review NO; Basophils Absolute Auto 0 /uL (0-100); Basophils Percent Auto 0.1 % (0-2); Eosinophils Absolute Auto 0 /uL (0-450); Eosinophils Percent Auto 0.1 % (2-4); Hematocrit 31.6 % (36-46); Hemoglobin 10.6 g/dL (12.0-16.0); Lymphocytes Absolute Auto 500 /uL (1100-4500); Lymphocytes Percent Auto 3.9 % (25-40); Mean Corpuscular HGB Conc 33.4 % (30-36); Mean Corpuscular Hemoglobin 30.9 PG (26-34); Mean Corpuscular Volume 92.3 fL (80-100); Monocytes Absolute Auto 500 /uL (0-900); Monocytes Percent Auto 4.6 % (3-14); Neutrophils Absolute Auto 10900 /uL (1500-7000); Neutrophils Percent Auto 91.3 % (50-75); Platelet Count 180 X10^3/uL (150-400); Red Blood Cell Count 3.42 X10^6/uL (4.0-5.2); Red Cell Distribution Width 14.7 % (11.6-14.8); White Blood Cell Count 11.9 X10^3/uL (4.5-11.0)
[2024-12-12] MEDS: ACETAMINOPHEN IV 1,000 MG/100 ML VIAL 400 MG IV (22:52)
[2024-12-13] MEDS: KETOROLAC 30 MG/ML VIAL IV ×2 (00:03→06:03)
[2024-12-13] MEDS: ACETAMINOPHEN 325 MG TABLET 650 MG PO ×3 (04:46→18:47)
[2024-12-13 05:41] LABS: Hematocrit 28.7 % (36-46); Hemoglobin 9.7 g/dL (12.0-16.0)
[2024-12-13] MEDS: OXYCODONE IR 5 MG TABLET PO ×6 (06:20→23:31)
[2024-12-13] MEDS: PRENATAL VIT,CALC/IRON/FOLIC 1 TABLET 1 TAB PO (08:49)
[2024-12-13] MEDS: LANOLIN OINT 7 GM 1 APPLIC TOP (08:54)
[2024-12-13] MEDS: SIMETHICONE 80 MG TABLET PO (10:25)
--- NOTE | 2024-12-13 11:43 | P.PNOB_ITS ---
Subjective - OB Subjective Narrative: 29yo [id number] POD#1 s/p PLTCS for malpresentation. She reports doing ok, having some pain, which is tolerable with medication. Has ambulated without dizziness/lightheadedness. Mckeon removed this morning, hasn't voided yet. Date Patient Seen: 12/13/24 Time Patient Seen: 11:43 Exam Vital Signs (past 8 hours): Oxygen Delivery Method Room Air vitals reviewed in OBIX, within normal parameters Const General: comfortable and No acute distress Resp Effort & Inspection: normal respiratory effort and able to speak in complete sentences GI Other: soft, mildly distended, appropriately tender; uterus firm and nontender at U-1 Skin Other: incision covered with pressure bandage, not removed as patient preferred to wait until later in the shower Objective Labs 12/13/24 05:27 Labs: Laboratory Results - last 24 hr 12/12/24 12/12/24 12/12/24 05:40 17:11 17:17 WBC RBC Hgb Hct MCV MCH MCHC RDW Plt Count Neut % (Auto) Lymph % (Auto) Roberts % (Auto) Eos % (Auto) Baso % (Auto) Neut # (Auto) Lymph # (Auto) Roberts # (Auto) Eos # (Auto) Baso # (Auto) Cord ABG pH 7.18 Cord ABG pCO2 62.3 Cord ABG HCO3 23.5 Cord ABG Base Excess -5.9 Cord ABG O2 Sat 10.6 Cord VBG pH 7.289 Cord VBG pCO2 43.1 Cord VBG pO2 27.0 Cord VBG HCO3 20.7 Cord VBG Base Excess -5.8 Cord VBG O2 Sat 43.2 Blood Type A Negative Antibody Screen Positive Antibody Identification Anti-D Maternal Bleed Crossmatch See Detail 12/12/24 12/12/24 12/13/24 18:25 21:51 05:27 WBC 12.3 H 11.9 H RBC 3.33 L 3.42 L Hgb 10.2 L 10.6 L 9.7 L Hct 30.7 L 31.6 L 28.7 L MCV 92.4 92.3 MCH 30.5 30.9 MCHC 33.0 33.4 RDW 14.8 14.7 Plt Count 165 180 Neut % (Auto) 91.3 H Lymph % (Auto) 3.9 L Roberts % (Auto) 4.6 Eos % (Auto) 0.1 L Baso % (Auto) 0.1 Neut # (Auto) 70662 H Lymph # (Auto) 500 L Roberts # (Auto) 500 Eos # (Auto) 0 Baso # (Auto) 0 Cord ABG pH Cord ABG pCO2 Cord ABG HCO3 Cord ABG Base Excess Cord ABG O2 Sat Cord VBG pH Cord VBG pCO2 Cord VBG pO2 Cord VBG HCO3 Cord VBG Base Excess Cord VBG O2 Sat Blood Type Antibody Screen Antibody Identification Maternal Bleed Negative Crossmatch Assessment & Plan Assessment and Plan (1) Delivery by section using transverse incision of lower segment of uterus: Status: Acute (2) hemorrhage: Status: Acute Plan day: 1 plan OB: routine postop care Comments: 29yo [id number] POD#1 s/p PLTCS c/b PPH, doing well in the period. -reviewed signs/symptoms of anemia with the patient, and advised to let us know if she experiences this; recommend repeat CBC in the morning, as well as IV iron infusion prior to discharge -continue routine postop care -plan for d/c home tomorrow if mom and baby do well Time-Based Coding :: [30min] spent with patient and on the chart (including review of chart, obtaining history, exam, reviewing outside data, placing orders, documenting exam and treatment plan, and counseling patient) on [12/13/24].
[2024-12-13] MEDS: IBUPROFEN 600 MG TABLET PO ×2 (12:56→18:48)
[2024-12-13] MEDS: BENZOCAINE/MENTHOL 1 LOZ PKT 1 EACH PO ×4 (12:58→23:31)
[2024-12-13] MEDS: HYDROMORPHONE 0.5 MG INJ IV (16:32)
[2024-12-13] MEDS: ferumoxytoL 510 MG in SODIUM CHLORIDE 0.9% 100 ML 234 MG IV (16:51)
[2024-12-14] MEDS: ACETAMINOPHEN 325 MG TABLET 650 MG PO ×3 (01:15→14:09)
[2024-12-14] MEDS: IBUPROFEN 600 MG TABLET PO ×3 (01:15→14:09)
[2024-12-14] MEDS: OXYCODONE IR 5 MG TABLET 10 MG PO ×2 (03:46→08:01)
[2024-12-14] MEDS: BENZOCAINE/MENTHOL 1 LOZ PKT 1 EACH PO ×2 (06:35→14:54)
[2024-12-14 06:43] LABS: Add Manual Diff / Slide Review NO; Basophils Absolute Auto 0 /uL (0-100); Basophils Percent Auto 0.2 % (0-2); Eosinophils Absolute Auto 0 /uL (0-450); Eosinophils Percent Auto 0.1 % (2-4); Hematocrit 27.2 % (36-46); Hemoglobin 9.3 g/dL (12.0-16.0); Lymphocytes Absolute Auto 800 /uL (1100-4500); Lymphocytes Percent Auto 7.6 % (25-40); Mean Corpuscular HGB Conc 34.1 % (30-36); Mean Corpuscular Hemoglobin 31.4 PG (26-34); Mean Corpuscular Volume 92.2 fL (80-100); Monocytes Absolute Auto 600 /uL (0-900); Neutrophils Absolute Auto 9100 /uL (1500-7000); Neutrophils Percent Auto 86.1 % (50-75); Platelet Count 154 X10^3/uL (150-400); Red Blood Cell Count 2.95 X10^6/uL (4.0-5.2); Red Cell Distribution Width 14.9 % (11.6-14.8); White Blood Cell Count 10.6 X10^3/uL (4.5-11.0)
[2024-12-14] MEDS: PRENATAL VIT,CALC/IRON/FOLIC 1 TABLET 1 TAB PO (08:01)
[2024-12-14] MEDS: polyethylene glycoL 3350 17 GM POWD.PACK PO (08:01)
--- NOTE | 2024-12-14 09:24 | P.DS_ITS ---
Discharge Providers Provider Date of admission: 12/12/24 03:45 Discharge Date: 12/14/24 Primary care physician: Doctor Vinay MD Consults: 12/12/24 04:55 Consult to Anesthesiology Urgent Comment: Consulting Provider: Anesthesiologist Reason for consultation: Epidural 12/12/24 21:13 Consult to Centrifugal Operator Routine Comment: Discharge provider: Lynn Rosas MD Summary Hospital Course Date Patient Seen: 12/14/24 Time Patient Seen: 08:00 Diagnoses: Admission for expectant management of term labor, SROM with known polyhydramnios Hospital Course: 29yo admitted to facility at 38w4d (d=1st tri US) secondary to SROM, +amnisure on arrival. course notable for known mild polyhydramnios (STEPHANIE 25), h/o prior need for pitocin augmentation following PROM in G1. Patient had bedside US on admission for presentation, confirmed cephalic with initiation of pitocin augmentation. Interval exam following initiation of pitocin notable for very high station/unstable lie and abdominal binder was placed (see progress note documentation). Patient then subsequently had spontaneous large gush of fluid consistent with rupture of forebag accompanied by immediate change in FHR tracing and onset of vaginal bleeding, malpresentation identified (RUE in vagina) and patient taken emergently to OR for primary low transverse section. Procedure complicated by need for conversion to general anesthesia secondary to inadequate neuraxial analgesia, prolonged/difficult extraction with bilateral extensions of hysterotomy, extension on L through but not compromising the uterine broad ligament, hemorrhage (~1500cc EBL intraoperative, +700cc per QBL of blood loss prior to entering OR). Pt received TXA, IU pitocin intraoperatively. Her /postoperative course was overall uncomplicated, postoperative h/h 9.7/28/7, asymptomatic and patient declined iron tranfusion prior to discharge. Pt was discharged to home on POD2 meeting all discharge milestones, routine precautions reviewed. Planned 1wk f/u in office for incision check. , s/p rhogam following delivery. Peripartum Data Infant Delivery Method: Emergency Section Procedures: emergent primary low transverse section complications: other ( hemorrhage) 1: Gender: Male Disposition of : home Discharge Diagnosis (1) Delivery by section using transverse incision of lower segment of uterus: Status: Acute (2) hemorrhage: Status: Acute Status at Discharge Cognitive/behavioral status at discharge: oriented Functional status at discharge: independent ambulation Overall status at discharge: patient is back to baseline Time Spent with Patient Time attestation: Total time spent providing and/or coordinating discharge services: Objective Labs 12/14/24 06:25 Labs: Laboratory Results - last 24 hr 12/14/24 06:25 WBC 10.6 RBC 2.95 L Hgb 9.3 L Hct 27.2 L MCV 92.2 MCH 31.4 MCHC 34.1 RDW 14.9 H Plt Count 154 Neut % (Auto) 86.1 H Lymph % (Auto) 7.6 L Bradford % (Auto) 6.0 Eos % (Auto) 0.1 L Baso % (Auto) 0.2 Neut # (Auto) 9100 H Lymph # (Auto) 800 L Bradford # (Auto) 600 Eos # (Auto) 0 Baso # (Auto) 0 Exam Vital Signs (past 8 hours): Oxygen Delivery Method Room Air maternal VS reviewed in OBIX and wnl normotensive, afebrile, no tachycardia Const General: cooperative, comfortable and well developed Nutritional Appearance: obese Orientation: alert, awake and oriented x3 Limitations: mental status not altered Resp Effort & Inspection: normal respiratory effort and able to speak in complete sentences GI Other: fundus firm << umb abd dressing in place, c/d/i Other: deferred, scant lochia per RN Skin General: no rashes or lesions noted Neuro General: patient alert, patient awake and patient oriented x3 Extrem General: normal to inspection Psych Mental Status: mental status grossly normal Judgment: judgment good Discharge Plan Discharge Plan Patient Disposition: Home Provider Discharge Comment: No heavy lifting >10lbs (no more than baby + carrier) for 6 weeks. Nothing in the vagina for 6 weeks, no tampons/intercourse/douching/swimming in fresh water/pools/hot tubs. Tub baths are okay after the first 4 weeks if the tub is cleaned well first. Discharge orders & Medications Prescriptions: New acetaminophen 325 mg Tablet 650 mg PO Q6H Qty: 30 0RF ibuprofen 600 mg Tablet 600 mg PO Q6H Qty: 30 0RF oxycodone 5 mg Tablet 5 mg PO Q4H PRN (Reason: Pain, Moderate (4-6)) Qty: 20 0RF ferrous gluconate 324 mg (38 mg iron) tablet 324 mg PO BID Qty: 60 0RF Rx Instructions: take with orange juice or cranberry juice to increase absorption Continued Classic 28 mg iron- 800 mcg tablet See Rx Instructions .ROUTE .COMPLEX Rx Instructions: Take as directed Follow up/Referrals: Bridgette Cartwright DO [Physician] - 01/25/25 1:30 pm (Please follow up w/ Dr. Cartwright for your 1 week incision check on December 21 at 9:45am! Please check in at 9:30am! Additionally, please follow up w/ Dr. Cartwright for your 6 week follow up on January 25 at 1:30pm! Please arrive at 1:15pm!) Diet/Activity/Treatments Diet: Regular Skin/Wound/Dressing Care Report to your healthcare provider any signs of infection, such as:: increased pain and unusual drainage Visit Report/Discharge Packet Stand Alone Forms: Patient Portal/API, Stroke Signs & Symptoms Discharge Data Primary Care Provider: Miscellaneous,Doctor
[2024-12-14] MEDS: OXYCODONE IR 5 MG TABLET PO (14:10)
[2024-12-14] MEDS: SIMETHICONE 80 MG TABLET PO (14:54)
[2024-12-14 17:59] VITALS: BP 109/63; PULSE 111; RESP 16; TEMP 36.5
[2024-12-14] MEDS: RHO(D) IMMUNE GLOBULIN 1,500 UNIT SYRINGE 1500 UNIT IM (18:26)
== END 2024-12-14 19:20 | disposition home or self-care (01) | DRG 540 ==
PROVIDERS: Nurse Anesthetist, Certified Registered; Obstetrics & Gynecology; Admitting Provider Student in an Organized Health Care Education/Training Program; Referring Provider Student in an Organized Health Care Education/Training Program; Visit Provider Student in an Organized Health Care Education/Training Program
PROC: 10D00Z1 Extraction of Products of Conception, Low, Open Approach (ICD-10-PCS; CPT 59514; principal; 2024-12-12 16:45)
DX: O64.8XX0 Obstructed labor due to other malposition and malpresentation, not applicable or unspecified (principal); Z3A.38 38 weeks gestation of pregnancy; Z37.0 Single live birth; O76 Abnormality in fetal heart rate and rhythm complicating labor and delivery; O36.0130 Maternal care for anti-D [Rh] antibodies, third trimester, not applicable or unspecified; O99.214 Obesity complicating childbirth; O40.3XX0 Polyhydramnios, third trimester, not applicable or unspecified; O45.93 Premature separation of placenta, unspecified, third trimester; O72.0 Third-stage hemorrhage; Z67.11 Type A blood, Rh negative
CPT/HCPCS: 36415; 59050; 59514; 76815; 82803; 85014; 85018; 85025; 85027; 85461; 86850; 86870; 86900; 86901; G0379; J0134; J0690; J1100; J1171; J1885; J2274; J2405; J2590; J2704; J2790; J3010; Q0138